=== PATIENT | female | born 1995 | race Hispanic/Latino ===

== ENCOUNTER 2018-04-22 01:29 | Observation (INO) | payer BC, SELFPAY ==
[2018-04-22 02:27] LABS: #Basophils 0.1 thou/uL (0.0-0.2); #Eosinphils 0.1 thou/uL (0.0-0.7); #Lymphocytes 1.6 thou/uL (1.20-3.40); #Monocytes 0.2 thou/uL (0.11-0.59); %Basophils 0.9 % (0.0-1.0); %Eosinophils 0.9 % (0.0-10.0); %Lymphocytes 20.4 % (28.0-48.0); %Monocytes 1.9 % (0.0-4.0); %Neutrophils 75.9 % (31.0-61.0); Hemoglobin 14.3 g/dL (12.0-16.0); Mean Corpuscular HGB CONC 33.4 g/dL (32.0-36.0); Mean Corpuscular Hemoglobin 30.4 pg (25.0-35.0); Mean Corpuscular Volume 90.8 fL (78.0-98.0); Mean Platelet Volume 9.6 fL (7.4-10.4); Platelet Count 266 thou/uL (130-400); RBC Distribution Width 11.4 % (11.5-14.5); Red Blood Cell (RBC) Count 4.72 mill/uL (4.00-5.20)
[2018-04-22 02:37] LABS: BHCG - Serum Negative (NEGATIVE); Pregs Control Background? CLEAR/WHITE (CLR/WHITE); Pregs Control Bar Appear? YES (CONTROL BAR)
[2018-04-22 02:45] LABS: Anion Gap 13 mmol/L (10-20); BUN (Urea Nitrogen) 9 mg/dL (7.0-18.7); Calc. Creatinine Clearance 0 mL/min (70-130); Calcium 9.4 mg/dL (7.8-10.44); Carbon Dioxide 24 mmol/L (22-29); Chloride 106 mmol/L (98-107); Estimated GFR-MDRD Greater than 90; Glucose 158 mg/dL (70-105); Sodium 139 mmol/L (136-145)
[2018-04-22] MEDS ORDERED: Acetaminophen 325 MG TAB PO PRN (04:59)
[2018-04-22] MEDS ORDERED: Ondansetron PF 4 MG/2 ML Vial IVP PRN (04:59)
[2018-04-22] MEDS ORDERED: Ondansetron ODT 4 MG TAB SL PRN (04:59)
[2018-04-22 05:10] VITALS: BMI 37.0
--- NOTE | 2018-04-22 05:38 | PDOC.FPRHP ---
- History of Present Illness Chief Complaint: left sided weakness and numbness; trouble walking History of Present Illness: Patient is a 22 year old female with a past history of complex migraines who initially presented to [facility] for 2 day history fatigue, left upper and extremity weakness/numbness and ataxia. She denies any other neurological symptoms. After evaluation at [facility], pt was transferred due to lack of availability of neurology for consultation. She has a prior history of hospitalization for TIA vs. Complex Migraine at [facility] in 2014. She states that she had residual left sided weakness for several months after that. ED Course: At outside ER, pt received ASA 324 mg, Ativan 1 mg, Solumedrol 1 g. - Allergies/Adverse Reactions Allergies Allergy/AdvReac Type Severity Reaction Status Date / Time No Known Allergies Allergy Verified 04/22/18 05:05 - Home Medications Medication Instructions Recorded Confirmed Type No Known 04/22/18 04/22/18 History - History PMHx:Complex migraine, Anxiety PSHx: none FHx: No family history of neurological disease; maternal grandmother with history of HTN, Father with DM Social: Pt denies drugs, alcohol, and tobacco use. She is a student at [employer]. - Review of Systems General: reports: fatigue. denies: fever/chills, weight/appetite/sleep changes ENT: reports: rhinorrhea. denies: nasal congestion Respiratory: denies: shortness of breath Cardiovascular: denies: chest pain Gastrointestinal: denies: nausea, vomiting, abdominal pain Skin: denies: rashes Musculoskeletal: reports: pain, tenderness Neurological: reports: numbness, weakness. denies: syncope, seizure Psychological: reports: anxiety - Vital signs BP: 131/79 HR: 96 RR: 16 Tmax: 98.9 Pox: 96% on RA Wt: 97 kg - Physical Exam Constitutional: NAD, awake, alert and oriented HEENT: normocephalic and atraumatic, PERRLA, EOMI, grossly normal vision, MMM Neck: supple Heart: RRR, normal S1/S2, no murmurs/rubs/gallops, no edema Lungs: CTAB Abdomen: soft, non-tender Neurological: CN II-XII intact, normal sensation, DTRs 2+ -Neurological: 4/5 strength in left upper and lower extremities. 5/5 in right upper and lower extremities No clonus; negative Babinsnki some spasticity noted in right upper extremity. Skin: no rash/lesions Psychiatric: normal mood and affect FMR H&P: Results - Labs Result Diagrams: 04/22/18 02:18 04/22/18 02:18 Lab results: WBC 8.0 thou/uL (4.8-10.8) 04/22/18 02:18 Hgb 14.3 g/dL (12.0-16.0) 04/22/18 02:18 Hct 42.8 % (36.0-47.0) 04/22/18 02:18 MCV 90.8 fL (78.0-98.0) 04/22/18 02:18 Plt Count 266 thou/uL (130-400) 04/22/18 02:18 Neutrophils % 75.9 % (31.0-61.0) H 04/22/18 02:18 Sodium 139 mmol/L (136-145) 04/22/18 02:18 Potassium 4.0 mmol/L (3.5-5.1) 04/22/18 02:18 Chloride 106 mmol/L (98-107) 04/22/18 02:18 Carbon Dioxide 24 mmol/L (22-29) 04/22/18 02:18 BUN 9 mg/dL (7.0-18.7) 04/22/18 02:18 Creatinine 0.76 mg/dL (0.6-1.1) 04/22/18 02:18 Glucose 158 mg/dL (70-105) H 04/22/18 02:18 Calcium 9.4 mg/dL (7.8-10.44) 04/22/18 02:18 - Radiology Interpretation MRI - head Status: report reviewed by me Additional comment: MRI Brain with and without contrast - multiple foci of increased T2 white matter signal in the periventricular deep white matter bilaterally. There are lesions within the corpus callosum. Findings are compatible with demyelinating process, likely multiple sclerosis. No enhancing lesions are seen at this time. No evidence of acute infarction or acute ischemia. Pansinusitits MRA of the head without contrast shows small 2 mm aneurysn along the anterior communicating artery MRA neck with and without IV contrast -Right and left common carotids - no hemodynamically significant stenosis -Right and left internal carotids no hemodynamically significant stenosis - Right and left vertebral arteries: no hemodynamically significant stenosis. No intimal flaps seen. No luminal narrowing. CT scan - head Status: report reviewed by me (CT) Additional comment: CT head without contrast - no acute intracranial findings -moderate paranasal sinus disease CTA head and neck - small dissection flap in left ICA without luminal narrowing. - otherwise normal CTA of head and neck FMR H&P: A/P - Problem List (1) Multiple sclerosis Current Visit: Yes Status: Acute Code(s): G35 - MULTIPLE SCLEROSIS (2) Anxiety Current Visit: Yes Status: Acute Code(s): F41.9 - ANXIETY DISORDER, UNSPECIFIED (3) Migraine Current Visit: Yes Status: Acute Code(s): G43.909 - MIGRAINE, UNSP, NOT INTRACTABLE, WITHOUT STATUS MIGRAINOSUS - Plan Multiple Sclerosis - will admit patient to medical unit for observation - new diagnosis, acure flare - will continue Methylprednisolone 1 g daily with taper. - likely curbside with neurology in AM. Anxiety - pt is not on chronic meds - will continue to monitor Migraine - per patient, mostly controlled with OTC medications. DVT proph: Lovenox Disposition/LOS: Stable. Length of stay no likely greater than 2 midnights
--- NOTE | 2018-04-22 07:46 | PDOC.FM ---
- Subjective Subjective: 22F, day 1 of hospitalization, her for MS flare. Found at [facility] 2 day prior. Transfered here to see neurology. Apparently no neurologist at [facility]. Patient state she feels well today, her weakness in left leg is improving. Still has some blurry vision. Specifically denies respiratory distress. - Objective MAR Reviewed: Yes Vital Signs & Weight: Vital Signs (12 hours) Temp Pulse Resp BP Pulse Ox 04/22/18 04:55 98.1 F 105 H 16 102/64 96 Weight Weight 94.801 kg Result Diagrams: 04/22/18 02:18 04/22/18 02:18 Phys Exam - Physical Examination Constitutional: NAD HEENT: moist MMs Neck: no nodes, supple Respiratory: no wheezing, no rales, no rhonchi, clear to auscultation bilateral Cardiovascular: RRR, no significant murmur, no rub Gastrointestinal: soft, non-tender, no distention, positive bowel sounds Musculoskeletal: no edema Neurological: non-focal, moves all 4 limbs Lymphatic: no nodes Psychiatric: normal affect Skin: no rash, cap refill <2 seconds Dx/Plan (1) Multiple sclerosis Code(s): G35 - MULTIPLE SCLEROSIS Status: Acute Plan: Currently improving per patient. Plan to continue steroid, convert to oral today. Consult Neuro for recs. No respiratory distress. DC plan include having patient walk and confident in performing daily activities. (2) Anxiety Code(s): F41.9 - ANXIETY DISORDER, UNSPECIFIED Status: Acute Plan: Currently, patient denies anxiety. Advise follow up as outpatient for treatment. (3) Migraine Code(s): G43.909 - MIGRAINE, UNSP, NOT INTRACTABLE, WITHOUT STATUS MIGRAINOSUS Status: Acute Plan: Improved. Patient not having any issue at this moment. Will reevaluate if it occurs.
[2018-04-22] MEDS: Enoxaparin Sodium 40 MG/0.4 ML SYRINGE SC SCH (12:52)
[2018-04-22] MEDS ORDERED: methylPREDNISolone Sod Succ 1 GM in Sodium Chloride 0.9% 250 ML 250 ML IVPB SCH (23:00)
[2018-04-22] MEDS ORDERED: methylPREDNISolone Sod Succ/PF 125 MG/2 ML VIAL IVP SCH (23:00)
--- NOTE | 2018-04-23 07:48 | PDOC.FM ---
- Subjective Subjective: Patient doing well. She reports her strength and blurry vision are all improving. She states she has no complaints. - Objective MAR Reviewed: Yes Vital Signs & Weight: Vital Signs (12 hours) Temp Pulse Resp BP BP Pulse Ox 04/23/18 07:27 97.7 F 72 19 106/67 95 04/23/18 03:45 97.9 F 81 16 115/70 97 04/23/18 00:30 98.5 F 79 16 133/84 84 L 04/22/18 19:50 98.3 F 83 16 126/77 97 Weight Weight 94.801 kg I&O: 04/22/18 04/23/18 04/24/18 06:59 06:59 06:59 Intake Total 250 Balance 250 Result Diagrams: 04/22/18 02:18 04/22/18 02:18 Phys Exam - Physical Examination Constitutional: NAD HEENT: moist MMs Neck: no nodes, supple Respiratory: no wheezing, no rales, no rhonchi, clear to auscultation bilateral Cardiovascular: RRR, no significant murmur, no rub Gastrointestinal: soft, non-tender, no distention, positive bowel sounds Musculoskeletal: no edema Neurological: non-focal, moves all 4 limbs 5/5 strength in upper and LE Lymphatic: no nodes Psychiatric: normal affect, A&O x 3 Skin: no rash Dx/Plan (1) Multiple sclerosis Code(s): G35 - MULTIPLE SCLEROSIS Status: Acute Plan: Currently improving per patient. Plan to continue steroid, convert to oral today. Consult Neuro for recs. Neuro indicated yesterday they will decided today for LP or not No respiratory distress. DC plan include having patient walk and confident in performing daily activities. (2) Anxiety Code(s): F41.9 - ANXIETY DISORDER, UNSPECIFIED Status: Acute Plan: Currently, patient denies anxiety and no overnight event. Advise follow up as outpatient for treatment. (3) Migraine Code(s): G43.909 - MIGRAINE, UNSP, NOT INTRACTABLE, WITHOUT STATUS MIGRAINOSUS Status: Acute Plan: Improved. Patient not having any issue at this moment and has not recurred/. Will reevaluate if it occurs.
[2018-04-23] MEDS: Enoxaparin Sodium 40 MG/0.4 ML SYRINGE SC SCH (10:36)
[2018-04-23] MEDS ORDERED: Acetaminophen 325 MG TAB PO PRN (11:06)
[2018-04-23 11:23] VITALS: BP 106/67
[2018-04-23 11:27] VITALS: TEMP 98.4
--- NOTE | 2018-04-23 12:10 | CON ---
DATE OF CONSULTATION: 04/23/2018 NEUROLOGY CONSULTATION CONSULTING PHYSICIAN: Family [facility]. IMPRESSION: 1. Probable multiple sclerosis. 2. 2 mm right anterior communicating aneurysm. 3. Small left internal carotid dissection. PLAN: 1. IV Solu-Medrol 1 g for 3 days. 2. Medrol Dosepak. 3. Office followup. HISTORY OF PRESENT ILLNESS: Ms. Bills is a 22-year-old female, college student, who came in with complaints of recurrent left-sided weakness. She reports that when she was 20, she had an episode of left-sided weakness that lasted about 2 weeks. She was evaluated in [place] and told that she had had a stroke. She was started on aspirin, but developed nosebleeds and discontinued it. Since then, she has been relatively stable. She has had some problems with panic and anxiety. She has had a tremor in her hands for the last several months. She came in this time with recurrent complaints of left-sided weakness and tendency to drag her left leg. She has also noted some blurred vision in the left eye. There is some minimal ongoing headache. She has a history of migraines also. She has been started on steroids. She was initially worked up at [facility] and had multiple scans done. Due to apparent lack of Neurology cover, they shipped her here. PAST MEDICAL HISTORY: Otherwise, negative other than the event 2 years ago. FAMILY HISTORY: Unremarkable. SOCIAL HISTORY: No tobacco or illicit drug use. MEDICATIONS: None. REVIEW OF SYSTEMS: Ten-system review of systems is otherwise negative. PHYSICAL EXAMINATION: GENERAL: She is a slightly overweight young woman, in no distress. VITAL SIGNS: Stable. She is afebrile. HEENT: Pupils are equal and reactive. Conjunctivae clear. Oropharynx clear. Visual acuity is subjectively mildly decreased in the left eye. There is no color desaturation reported. NECK: Supple. No lymphadenopathy. EXTREMITIES: No cyanosis, clubbing, or edema. NEUROLOGIC: She is alert and appropriate. Her speech is fluent and clear. Cranial nerves 2 through 12 are intact. Otherwise, motor exam showed good strength bilaterally. Sensation was intact to light touch. She had a postural tremor in both hands. She can walk independently. LABORATORY DATA: Laboratory studies were reviewed. SUMMARY: This is a young woman with apparent multiple white matter lesions reported on her MRI suggesting multiple sclerosis. Imaging was not available for review. There is some minor endovascular abnormalities as reported above that probably are insignificant. I would finish her steroid treatment and I will follow up with her to start a disease modifying agent to address her multiple sclerosis. Job ID: [id number]
--- NOTE | 2018-04-24 08:32 | HP ---
ADDENDUM: Please see the history and physical done by Dr. Chhaya Shin, for which I agree as well as the progress note from Dr. Bejarano, for which I agree. The patient was seen, evaluated, and discussed with the residents by bedside. HISTORY OF PRESENT ILLNESS: This is a 22-year-old, who comes in with left-sided weakness, both arm and leg. Does have history of complicated complex migraines in the past, but this seems more extreme for even some problems walking and MRI shows likely multiple foci of increased T2 white matter signal in the periventricular deep white matter bilaterally compatible with demyelinating processes like a mass and so is here for that possibility. She has been given IV Solu-Medrol and her responding seems to be little better as far as her weakness on the left side. PAST MEDICAL HISTORY: Per the history and physical that was reviewed. PAST SURGICAL HISTORY: Per the history and physical that was reviewed. MEDICATIONS: Per the history and physical that was reviewed. ALLERGIES: PER THE HISTORY AND PHYSICAL THAT WAS REVIEWED. REVIEW OF SYSTEMS: Per the history and physical that was reviewed. PHYSICAL EXAMINATION: GENERAL: Exam is completely normal. VITAL SIGNS: Stable. Affect is normal. I do not really appreciate any left facial defects. Left arm and hand seem maybe detail just a little bit weak compared to the right and the left leg also has a slightly weak compared to the right. ASSESSMENT AND PLAN: Multiple sclerosis, likely redness by Dr. Lucas neurology on-call and he recommends IV steroids for about 3 days and then outpatient workup for multiple sclerosis while she is on a Medrol taper. Discussed this with the patient. Job ID: [id number]
--- NOTE | 2018-04-24 08:48 | PRG ---
DATE OF SERVICE: 04/23/2018 ADDENDUM: Please see note from Dr. Timothy Bejarano, for which I agree. The patient was seen, evaluated, examined, and discussed with the residents. Basically doing a lot better. Neurologically starting to get some of her strength back in her left arm, even through it is not 100%, left leg is lot better as well. Has been on IV steroids, and we discussed this with Dr. Lucas, Neurology, yesterday and he wants to see her as an outpatient and feels like since she gets her 3rd day of steroids she can go and will follow up with him. The patient asked us about some kind of CT finding in her neck at [facility], we were able to smith down those old medical records, and a CTA showed a questionable dissection flap that is how is described on the CTA, but then was not seen on MRA on the left side. Certainly, does not describe an actual dissection or anything that extreme. So, it does not sound like this is something that is acutely major problem, but can run this by Neurology as an outpatient to get their opinion, if we just need to keep following this. Job ID: [id number]
--- NOTE | 2018-04-24 14:11 | DIS ---
DATE OF ADMISSION: 04/22/2018 DATE OF DISCHARGE: 04/23/[address] Sebastian Koch DISCHARGE ATTENDING Dr. Sebastian Koch RESIDENT PHYSICIAN Dr. Timothy Bejarano CONSULTS: Dr. Pranay Lucas, Neurology. PROCEDURES: None. PRIMARY DIAGNOSES: 1. Probable multiple sclerosis. 2. A 2-mm right anterior communicating aneurysm. 3. Small left internal carotid dissection. DISCHARGE MEDICATIONS: None. HISTORY OF PRESENT ILLNESS: Ms. Bills is a 22-year-old female who was seen initially at [facility] for recurrent left-sided weakness and blurry vision. She had an MRI done at [facility] where it was found that she has finding concerning for multiple sclerosis. In addition a CT of her carotid was done, finding a 2-mm right anterior communicating aneurysm and small left internal carotid dissection. She was then transferred to [facility] due to apparent lack of Neurology at [facility]. During her stay here, she was started on 1 gm of methylprednisolone Q. daily. During her stay, her symptoms gradually resolved. On the 3rd day of treatment, Dr. Pranay Lucas saw her. His recommendation was that she follow up in clinic with him for further workup on multiple sclerosis and that the small aneurysm and dissection was not of significance but she should also follow up with him for that. DISPOSITION: Stable. DISCHARGE INSTRUCTIONS: Location: To home. Diet: As tolerated. Activity: As tolerated. Followup: Follow up with Dr. Pranay Lucas within 2 weeks. Job ID: [id number] MTDD
== END 2018-04-23 12:21 | disposition home or self-care (01) ==
LOC: ERS 01:29 → T4-A 03:00
PROVIDERS: ADMIT Family Medicine; ATTEND Family Medicine
DX: R53.1 Weakness (principal); G35 Multiple sclerosis; G43.809 Other migraine, not intractable, without status migrainosus; I67.1 Cerebral aneurysm, nonruptured; F41.9 Anxiety disorder, unspecified; Z79.52 Long term (current) use of systemic steroids
CPT/HCPCS: 36415; 80048; 84703; 85025; 96365; 96366; 96372; 99285; G0378; J1650; J2930; J7050

== ENCOUNTER 2020-01-18 09:52 | Inpatient (IN) | payer BC, SELFPAY ==
[2020-01-18 10:31] LABS: #Basophils 0.1 thou/uL (0.0-0.2); #Eosinphils 0.3 thou/uL (0.0-0.7); #Lymphocytes 2.5 thou/uL (1.20-3.40); #Monocytes 0.4 thou/uL (0.11-0.59); %Lymphocytes 26.6 % (21.0-51.0); %Monocytes 4.3 % (0.0-10.0); %Neutrophils 65.2 % (42.0-75.0); Hemoglobin 15.4 g/dL (12.0-16.0); Mean Corpuscular HGB CONC 35.2 g/dL (32.0-36.0); Mean Corpuscular Hemoglobin 32.2 pg (27.0-31.0); Mean Corpuscular Volume 91.5 fL (78.0-98.0); Mean Platelet Volume 9.7 fL (7.4-10.4); Platelet Count 231 thou/uL (130-400); RBC Distribution Width 11.2 % (11.5-14.5); Red Blood Cell (RBC) Count 4.79 mill/uL (4.20-5.40); White Blood Cell (WBC) Count 9.3 thou/uL (4.8-10.8)
[2020-01-18 10:35] LABS: BHCG - Serum Negative (NEGATIVE); Pregs Control Background? CLEAR/WHITE (CLR/WHITE); Pregs Control Bar Appear? YES (CONTROL BAR)
--- NOTE | 2020-01-18 10:48 | CT ---
CT HEAD WITHOUT IV CONTRAST COMPARISON: None HISTORY: Altered mental status. History of multiple sclerosis. Left leg weakness and increased headaches with nausea. TECHNIQUE: Axial CT imaging at 5 mm intervals from vertex through skull base without contrast FINDINGS: There is no evidence of an acute infarction, hemorrhage, mass effect, or midline shift. The ventricul ar system is normal in size, shape, and position. Skull base has a normal CT appearance. Mucosal thickening is seen scattered within the ethmoidal air cells bilaterally with trace mucosal th ickening in the left sphenoid sinus. Mastoid air cells are clear. Osseous structures appear intact. IMPRESSION: 1. No acute intracranial abnormality demonstrated. 2. Patient has reported history of multiple sclerosis. MRI brain would be a more sensitive study of lizette saul for evaluation of demyelinating plaques.
[2020-01-18 10:54] LABS: ALT (SGPT) 14 U/L (8-55); AST (SGOT) 12 U/L (5-34); Albumin 4.2 g/dL (3.5-5.0); Alkaline Phosphatase 80 U/L (40-110); Anion Gap 13 mmol/L (10-20); BUN (Urea Nitrogen) 15 mg/dL (7.0-18.7); Bilirubin, Total 1.2 mg/dL (0.2-1.2); CK (CPK) 99 U/L (29-168); Calc. Creatinine Clearance 0 mL/min (70-130); Calcium 9.1 mg/dL (7.8-10.44); Carbon Dioxide 24 mmol/L (22-29); Chloride 104 mmol/L (98-107); Estimated GFR-MDRD Greater than 90; Globulin 2.7 g/dL (2.4-3.5); Glucose 126 mg/dL (70-105); Potassium 3.9 mmol/L (3.5-5.1); Protein, Total 6.9 g/dL (6.0-8.3); Sodium 137 mmol/L (136-145)
[2020-01-18] MEDS ORDERED: diphenhydrAMINE 50 MG/ML VIAL ONE (11:25)
[2020-01-18] MEDS ORDERED: Acetaminophen 500 MG TAB ONE (11:25)
[2020-01-18] MEDS ORDERED: Metoclopramide HCl 10 MG/2 ML VIAL ONE (11:25)
--- NOTE | 2020-01-18 11:44 | PDOC.FPRHP ---
- History of Present Illness Chief Complaint: dizziness and nausea History of Present Illness: Pt is a 24yo female with hx of MS and migraines who presents with nausea, dizziness and weakness. On Tuesday started to experience a migraine headache, had transient loss of vision in her right eye and had left leg weakness. Left leg has "felt heavy" and she was walking with a limp. Yesterday started to have nausea, emesis, fatigue, and dizziness. Went to [facility] today for dizziness and weakness and was told to go to ED. She was diagnosed with MS in Apr 2018. Had been seeing Dr. Lucas, neurologist, until about 1 year ago when she lost her insurance. She has not been taking medications since then. Denies LOC, slurred speech, fever, cough, congestion, SOB. ED Course: 1L NS, 1000mg methylprednisolone, benadryl 25mg, reglan 10mg, 1g tylenol - Allergies/Adverse Reactions Allergies Allergy/AdvReac Type Severity Reaction Status Date / Time No Known Allergies Allergy Verified 04/22/18 05:05 - Home Medications Medication Instructions Recorded Confirmed Type Aspirin/Acetaminophen/Caffeine 1 each PO Q6HR PRN 01/18/20 01/18/20 History [Excedrin Migraine Caplet] - History PMHx: MS, migraine w/ aura, anxiety PSHx: none FHx: none Social: non-smoker, minimal alcohol use, no drug use - Review of Systems General: denies: fever/chills, weight/appetite/sleep changes Eyes: reports: vision changes ENT: denies: nasal congestion, rhinorrhea Respiratory: denies: cough, congestion, shortness of breath Cardiovascular: reports: palpitation. denies: chest pain Gastrointestinal: reports: nausea, vomiting, diarrhea Genitourinary: denies: dysuria, polyuria Skin: denies: rashes, lesions Musculoskeletal: denies: pain, tenderness Neurological: reports: numbness, weakness Psychological: reports: anxiety. denies: depression - Vital signs BP: 111/60, HR 70, RR 16, Temp 98.2F, O2 100% on RA, wt 100kg - Physical Exam Constitutional: NAD, awake, alert and oriented HEENT: normocephalic and atraumatic, EOMI, no scleral icterus, grossly normal vision, grossly normal hearing, MMM Neck: supple, FROM Heart: RRR, normal S1/S2, no murmurs/rubs/gallops, pulses present, no edema Lungs: CTAB, no respiratory distress, no wheezing Abdomen: soft, non-tender Musculoskeletal: normal structure, normal tone Neurological: CN II-XII intact -Neurological: Left leg: decreased sensation, motor 4/5. RUE intention tremor Skin: no rash/lesions, no jaundice Heme/Lymphatic: no unusual bruising or bleeding Psychiatric: normal mood and affect, good judgment and insight, intact recent and remote memory FMR H&P: Results - Labs Result Diagrams: 01/18/20 10:20 01/18/20 10:20 Lab results: WBC 9.3 thou/uL (4.8-10.8) 01/18/20 10:20 Hgb 15.4 g/dL (12.0-16.0) 01/18/20 10:20 Hct 43.8 % (36.0-47.0) 01/18/20 10:20 MCV 91.5 fL (78.0-98.0) 01/18/20 10:20 Plt Count 231 thou/uL (130-400) 01/18/20 10:20 Neutrophils % 65.2 % (42.0-75.0) 01/18/20 10:20 Sodium 137 mmol/L (136-145) 01/18/20 10:20 Potassium 3.9 mmol/L (3.5-5.1) 01/18/20 10:20 Chloride 104 mmol/L (98-107) 01/18/20 10:20 Carbon Dioxide 24 mmol/L (22-29) 01/18/20 10:20 BUN 15 mg/dL (7.0-18.7) 01/18/20 10:20 Creatinine 0.78 mg/dL (0.6-1.1) 01/18/20 10:20 Glucose 126 mg/dL (70-105) H 01/18/20 10:20 Calcium 9.1 mg/dL (7.8-10.44) 01/18/20 10:20 Total Bilirubin 1.2 mg/dL (0.2-1.2) 01/18/20 10:20 AST 12 U/L (5-34) 01/18/20 10:20 ALT 14 U/L (8-55) 01/18/20 10:20 Alkaline Phosphatase 80 U/L (40-110) 01/18/20 10:20 Creatine Kinase 99 U/L (29-168) 01/18/20 10:20 Serum Total Protein 6.9 g/dL (6.0-8.3) 01/18/20 10:20 Albumin 4.2 g/dL (3.5-5.0) 01/18/20 10:20 - Radiology Interpretation CT scan - head Status: report reviewed by me MRI - head Status: image reviewed by me, report reviewed by me FMR H&P: A/P - Plan 24yo w/ hx of MS presents with NICE, N/V and weakness of L leg #Acute exacerbation of MS -dx of MS, currently not treated due to lack of insurance -Brain CT: no acute process, pending MRI -neurology consulted from ED: start 1000mg methylprednisolone - consulted for help with cost of outpatient treatment for MS #Migraine -received NICE cocktail in ED -takes excedrin migraine at home -tylenol prn, excedrin migraine prn #nausea/vomiting -zofran prn -diet as tolerated -consider IVF if not able to tolerate po #Anxiety -aware, patient not on medication PCP: none Code: Full Diet: Regular IVF: SL DVT ppx: lovenox Dispo: Admit inpatient medical, neurology consulted, appreciate recs. LOS >48hrs FMR H&P: Upper Level - Pertinent history Pt is a 24 yo female with PMH significant for MS, migraines with aura, small left interal carotid dissection, 2 mm anterior communicating aneurysm who presents with neurological deficits. 2 days ago she had a migraine with sudden vision loss but currently does not have vision changes. She has sensory/motor changes to L thigh. She denies any other deficits at this time. She endorse n/v for the last 2 days as well. She was diagnosed in 04/2018 and treated until 12/2018. Has not been on treatment due to lack of insurance. She thinks she was treated with tysabri. Vitals: BP: 111/60, HR 70, RR 16, Temp 98.2F, O2 100% on RA, wt 100kg Pertinent Physical Exam: 4/5 LLE, decreased sensation to L thigh, CN II-XII intact, TAMMY A/P: # Multiple Sclerosis -Neurology consulted in ED -Pt seen previously by Dr. Lucas but pt could not afford medications with lack of insurance CM consulted. -Methylprednisilone 1g IV daily for 3-7 days # N/V -Monitor PO intake and start fluids if Zofran does not alleviate nausea # Hx of 2 mm R anterior communicating aneurysm -No evidence of rupture on CT; Follow up in outpt # Small Left Internal Carotid Dissection -Follow up in outpatient # Hyperglycemia -Monitor with accuchecks in the setting of high dose steroid use # Anxiety -Monitor VTE: Lovenox Diet: Regular change to carb consistent if needed Fluids: PO Code: Full Dispo: Admit to neuro unit for MS Flare, > 48 hrs - Plan Date/Time: 01/18/20 1144 I, Rizwan Nichols, have evaluated this patient and agree with findings/plan as outlined by event marketing intern resident. Pertinent changes/additions are listed here. Addendum - Attending - Attending Attestation Date/Time: 01/18/20 1400 I personally evaluated the patient and discussed the management with Dr. Vasquez/Simone. I agree with the History, Examination, Assessment and Plan documented above with any addition or exceptions noted below. Patient with history of MS here with suggested MS flare. Neuro consult. MRI read pending but does appear to have active inflammatory plaques on my review. High dose steroids. PT. Anticipate several day hospitalization.
[2020-01-18] MEDS ORDERED: methylPREDNISolone Sod Succ 1 GM in Sodium Chloride 0.9% 100 ML IVPB SCH (12:00)
[2020-01-18] MEDS ORDERED: Acetaminophen 325 MG TAB PO PRN (12:53)
[2020-01-18] MEDS ORDERED: Acetaminophen 650 MG Suppository PR PRN (12:53)
[2020-01-18] MEDS ORDERED: Ondansetron ODT 4 MG TAB PO PRN (12:53)
[2020-01-18] MEDS ORDERED: Ondansetron PF 4 MG/2 ML Vial IVP PRN (12:53)
--- NOTE | 2020-01-18 13:17 | CON ---
NEUROLOGY CONSULTATION DATE OF CONSULTATION: 01/18/2020 REASON FOR CONSULTATION: Multiple sclerosis exacerbation. HISTORY OF PRESENT ILLNESS: Ms. Mara Bills is a 24-year-old female with history significant for multiple sclerosis, not on any immune modulating agent due to lack of insurance, came to the hospital from a health clinic at a [facility] because of left leg weakness since the last 2 days. Per the patient, she has difficulty walking and has been limping. She also has decreased sensation up to the knee of the left leg. She also complained of severe migraine with worst pain behind the right eye, for which she has been taking [id number] Excedrin. She also claims to be very nauseous and did have vomiting. The patient has been seen by a neurologist by Dr. Lucas as outpatient, but since she lost her insurance, she has not seen a neurologist for more than a year. Currently, she cannot afford her medications. The patient denies double vision, but she does report pain on moving the eyes and also transient loss of vision in the right eye yesterday, which resolved on its own in the setting of severe headache. The patient reports nausea, vomiting, headache, episode of loss of vision, and pain on moving the eyes, but denies problems with speech or swallowing, urinary retention, or urinary incontinence. REVIEW OF SYSTEMS: All systems were reviewed and were negative except the pertinent positives and negatives mentioned in the HPI. PAST MEDICAL HISTORY: 1. Migraines. 2. Multiple sclerosis. 3. Anxiety. PAST SURGICAL HISTORY: None. SOCIAL HISTORY: Drinks socially twice a month. Denies smoking or illegal drug use. FAMILY HISTORY: No family history of MS. ALLERGIES:NKDA Vital signs BP: 111/60, HR 70, RR 16, Temp 98.2F, O2 100% on RA, wt 100kg PHYSICAL EXAMINATION: Constitutional: NAD, awake, alert and oriented HEENT: normocephalic and atraumatic, EOMI, no scleral icterus, grossly normal vision, grossly normal hearing, MMM Neck: supple, FROM Heart: RRR, normal S1/S2, no murmurs/rubs/gallops, pulses present, no edema Lungs: CTAB, no respiratory distress, no wheezing Abdomen: soft, non-tender Musculoskeletal: normal structure, normal tone Neurological: Mental status; the patient is alert and oriented to person, place, and time. Speech is clear. Recent and remote memory intact. Fund of knowledge is appropriate. Motor; muscle tone and bulk are normal, strength in upper extremity 5/5, intention tremor in the right upper extremity, and left lower extremity 3/5, right lower extremity 5/5. Sensory; decreased sensation to light touch in the left leg up to the knee. Rest is intact. Gait, deferred due to patient's safety reasons. Cerebellar, finger-nose testing intact. DATA REVIEWED: I reviewed the CT scan, which was negative for acute intracranial pathology. Lab results: WBC 9.3 thou/uL (4.8-10.8) 01/18/20 10:20 Hgb 15.4 g/dL (12.0-16.0) 01/18/20 10:20 Hct 43.8 % (36.0-47.0) 01/18/20 10:20 MCV 91.5 fL (78.0-98.0) 01/18/20 10:20 Plt Count 231 thou/uL (130-400) 01/18/20 10:20 Neutrophils % 65.2 % (42.0-75.0) 01/18/20 10:20 Sodium 137 mmol/L (136-145) 01/18/20 10:20 Potassium 3.9 mmol/L (3.5-5.1) 01/18/20 10:20 Chloride 104 mmol/L (98-107) 01/18/20 10:20 Carbon Dioxide 24 mmol/L (22-29) 01/18/20 10:20 BUN 15 mg/dL (7.0-18.7) 01/18/20 10:20 Creatinine 0.78 mg/dL (0.6-1.1) 01/18/20 10:20 Glucose 126 mg/dL (70-105) H 01/18/20 10:20 Calcium 9.1 mg/dL (7.8-10.44) 01/18/20 10:20 Total Bilirubin 1.2 mg/dL (0.2-1.2) 01/18/20 10:20 AST 12 U/L (5-34) 01/18/20 10:20 ALT 14 U/L (8-55) 01/18/20 10:20 Alkaline Phosphatase 80 U/L (40-110) 01/18/20 10:20 Creatine Kinase 99 U/L (29-168) 01/18/20 10:20 Serum Total Protein 6.9 g/dL (6.0-8.3) 01/18/20 10:20 Albumin 4.2 g/dL (3.5-5.0) 01/18/20 10:20 - Radiology Interpretation CT scan - head Status: report reviewed by me ASSESSMENT AND PLAN: Ms. Mara Bills is a 24-year-old female with history significant for MS, not on any long-term immunomodulating agent due to insurance, presented with multiple sclerosis exacerbation. Start on Solu-Medrol 1 g IV every 24 hours for 3-5 days. Regular insulin sliding scale for steroid-induced hyperglycemia. Ppi for steroid-induced gastroesophageal reflux disease. Neuro checks every 4 hours. MRI of the brain with and without contrast to assess for new active demyelinating lesions. PT/OT/Speech. Continue medical management per primary team. The plan discussed in detail with the ED physician and the patient. We will continue to follow. Thank you for the consult. Job ID: [id number] MEDARDO
[2020-01-18 13:40] VITALS: BMI 38.0
--- NOTE | 2020-01-18 14:32 | MRI ---
MRI OF THE BRAIN WITH AND WITHOUT IV CONTRAST: 01/18/20 HISTORY: Altered mental status. Multiple sclerosis. FINDINGS: There are multiple foci of T2 prolongation in the periventricular subcortical white matter consisten t with history of multiple sclerosis. There is an enhancing 6 mm plaque involving the subcortical whi te matter of the left posterior frontal region. No infarct, hemorrhage, mass, midline shift or abnorm al extra-axial fluid collections are seen. The ventricular size is normal and the basilar cisterns pa tent. There is mucosal disease in the paranasal sinuses. IMPRESSION: The findings are consistent with multiple sclerosis with a focal actively demyelinating plaque in the left posterior frontal lobe. POS: AH
[2020-01-18] MEDS ORDERED: Magnevist 469MG/ML 20 ML VIAL ONE (15:15)
[2020-01-18] MEDS ORDERED: Dextrose 5% in Water 1,000 ML IV PRN (20:15)
[2020-01-18] MEDS ORDERED: Dextrose 50% Abboject 50 ML SYRINGE IVP PRN (20:15)
[2020-01-18] MEDS: HumaLOG 300 UNITS/3 ML VIAL SC PRN (20:27)
[2020-01-18] MEDS: Aspirin/APAP/Caffeine Tab (Excedrin Migraine) PO PRN (20:31)
[2020-01-19] MEDS ORDERED: Ketorolac Tromethamine 30 MG/ML VIAL IVP SCH ×2 (03:00→13:30)
--- NOTE | 2020-01-19 06:14 | PDOC.FM ---
- Subjective Subjective: Headache overnight, given toradol which resolved. She has no other complaints this morning. She has not had any further vision changes, normal vision at this time. She feels weakness has improved, no focal symptoms. She has intention tremor of R hand which is chronic and has not worsened per patient. - Objective Vital Signs & Weight: Vital Signs (12 hours) Temp Pulse Resp BP BP Pulse Ox 01/19/20 04:00 98.1 F 71 20 124/75 97 01/18/20 23:40 98.4 F 98 18 128/79 98 01/18/20 20:00 98 01/18/20 19:50 99.3 F 110 H 20 122/79 94 L Weight Weight 100.698 kg I&O: 01/17/20 01/18/20 01/19/20 06:59 06:59 06:59 Intake Total 340 Balance 340 Result Diagrams: 01/18/20 10:20 01/18/20 10:20 Phys Exam - Physical Examination Constitutional: NAD HEENT: moist MMs Neck: supple Respiratory: no wheezing, no rales, no rhonchi, clear to auscultation bilateral Cardiovascular: RRR, no significant murmur Gastrointestinal: soft, non-tender, no distention, positive bowel sounds Musculoskeletal: no edema Neurological: non-focal, moves all 4 limbs R hand intention tremor Psychiatric: normal affect, A&O x 3 Skin: no rash Dx/Plan - Plan Plan: 24yo w/ hx of MS presents with NICE, N/V and weakness of L leg #Acute exacerbation of MS -dx of MS, currently not treated due to lack of insurance -Brain CT: no acute process, MRI c/w MS and actively demylinating plaque in L posterior frontal lobe -neurology consulted from ED - continue methylpredisolone 1 g daily - started 01/17 - consulted for help with cost of outpatient treatment for MS #Migraine -received NICE cocktail in ED -takes excedrin migraine at home -tylenol prn, excedrin migraine prn - toradol overnight resolved headache #Hyperglycemia Likely 2/2 high dose steroids - continue accuchecks - consider hga1c if persistent #nausea/vomiting -zofran prn -diet as tolerated -consider IVF if not able to tolerate po #Anxiety -aware, patient not on medication PCP: none Code: Full Diet: Regular IVF: SL DVT ppx: lovenox Dispo: Admit inpatient medical, neurology consulted, appreciate recs. LOS >48hrs Addendum - Attending - Attending Attestation Date/Time: 01/19/20 1475 I personally evaluated the patient and discussed the management with Dr. Ascencio. I agree with the History, Examination, Assessment and Plan documented above with any addition or exceptions noted below. Patient reports feeling overall improved, but did have headache overnight. Continue IV solumedrol, therapy. Anticipate 2-3 days of hospitalization ahead. Neurology on board. CM for medication assistance.
[2020-01-19] MEDS: methylPREDNISolone Sod Succ 1 GM in Sodium Chloride 0.9% 100 ML IVPB SCH (08:50)
[2020-01-19] MEDS: Enoxaparin Sodium 40 MG/0.4 ML SYRINGE SC SCH (08:50)
[2020-01-19] MEDS ORDERED: methylPREDNISolone Sod Succ/PF 125 MG/2 ML VIAL IVP SCH (09:00)
[2020-01-19] MEDS: HumaLOG 300 UNITS/3 ML VIAL SC PRN ×3 (12:52→20:05)
[2020-01-19] MEDS: Aspirin/APAP/Caffeine Tab (Excedrin Migraine) PO PRN (13:40)
[2020-01-19] MEDS ORDERED: FLU VACC QS2020-21(6MOS UP)/PF 60 MCG/0.5 ML SYRINGE IM ONE (14:00)
--- NOTE | 2020-01-19 14:14 | PDOC.NEUPN ---
- Subjective Encounter Date: 01/19/20 Subjective: Patient feels much better today. She was able to walk with the help of the physical therapist - Objective Vital Signs & Weight: Vital Signs (12 hours) Temp Pulse Resp BP BP BP Pulse Ox 01/19/20 12:00 98.0 F 80 20 133/78 96 01/19/20 09:25 112/76 01/19/20 08:00 98 01/19/20 07:46 98.2 F 62 20 104/67 98 01/19/20 04:00 98.1 F 71 20 124/75 97 Weight Admit Weight 222 lb Weight 222 lb I&O: 01/18/20 01/19/20 01/20/20 06:59 06:59 05:59 Intake Total 340 Balance 340 Result Diagrams: 01/18/20 10:20 01/18/20 10:20 Additional Labs: Accuchecks 01/19/20 01/19/20 01/18/20 11:56 04:23 19:40 POC Glucose 219 H 146 H 237 H Radiology Reviewed by me: Yes EKG Reviewed by me: Yes ROS - Review of Systems Constitutional: denies: fever, chills, sweats, weakness, malaise, other Eyes: reports: pain ENT: denies: ear pain, ear discharge, nose pain, nose discharge, nose congestion, mouth pain, mouth swelling, throat pain, throat swelling, other Respiratory: denies: cough, dry, shortness of breath, hemoptysis, SOB with excertion, pleuritic pain, sputum, wheezing, other Cardiovascular: denies: no pertinent history, AFIB, CAD, CHF, HTN, AK, Syncope, Hyperlipidemia, Mitral valve stenosis, Aortic stenosis, Valve insufficiency, Pulmonary hypertension, Other Gastrointestinal: denies: nausea, vomiting, abdominal pain, diarrhea, constipation, melena, hematochezia, other Genitourinary: denies: dysuria, frequency, incontinence, hematuria, retention, other Musculoskeletal: reports: leg pain, foot pain. denies: neck pain, shoulder pain, arm pain, back pain, hand pain, other Skin: denies: rash, lesions, alessandro, bruising, other Neurological: reports: weakness. denies: numbness, incoordination, change in speech, confusion, seizures, other All Systems: All other systems reviewed; all pertinent +/- noted in HPI/Subj - Medication Medications: Active Medications Generic Name Dose Route Start Last Admin Trade Name Freq PRN Reason Stop Dose Admin Acetaminophen/Aspirin/Caffeine 1 tab 01/18/20 13:31 01/19/20 13:40 Aspirin/Apap/Caffeine Tab (Excedrin Migraine) PO 1 tab Q6H PRN Administration Headache Enoxaparin Sodium 40 mg 01/19/20 09:00 01/19/20 08:50 Enoxaparin Sodium 40 Mg/0.4 Ml Syringe SC 40 mg 0900 GWEN Administration Methylprednisolone Sodium 116 mls @ 116 mls/hr 01/19/20 09:00 01/19/20 08:50 Succinate 1 gm/ Sodium IVPB 116 mls Chloride DAILY GWEN Administration Insulin Human Lispro 0 units 01/18/20 20:04 01/19/20 12:52 Humalog 300 Units/3 Ml Vial SC 3 unit .MILD SLIDING SCALE PRN Administration Mild Correctional Scale Insulin Human Lispro 0 units 01/18/20 20:04 01/18/20 20:27 Humalog 300 Units/3 Ml Vial SC 2 unit .BEDTIME SLIDING SC PRN Administration Bedtime Correctional Scale Ketorolac Tromethamine 15 mg 01/19/20 13:30 01/19/20 13:41 Ketorolac Tromethamine 30 Mg/Ml Vial IVP 01/19/20 15:30 15 mg NOW GWEN Administration Pantoprazole Sodium 40 mg 01/19/20 09:00 01/19/20 08:50 Pantoprazole 40 Mg Tab PO 40 mg DAILY GWEN Administration Results - Labs Result Diagrams: 01/18/20 10:20 01/18/20 10:20 Lab results: WBC 9.3 thou/uL (4.8-10.8) 01/18/20 10:20 Hgb 15.4 g/dL (12.0-16.0) 01/18/20 10:20 Hct 43.8 % (36.0-47.0) 01/18/20 10:20 MCV 91.5 fL (78.0-98.0) 01/18/20 10:20 Plt Count 231 thou/uL (130-400) 01/18/20 10:20 Neutrophils % 65.2 % (42.0-75.0) 01/18/20 10:20 Sodium 137 mmol/L (136-145) 01/18/20 10:20 Potassium 3.9 mmol/L (3.5-5.1) 01/18/20 10:20 Chloride 104 mmol/L (98-107) 01/18/20 10:20 Carbon Dioxide 24 mmol/L (22-29) 01/18/20 10:20 BUN 15 mg/dL (7.0-18.7) 01/18/20 10:20 Creatinine 0.78 mg/dL (0.6-1.1) 01/18/20 10:20 Glucose 126 mg/dL (70-105) H 01/18/20 10:20 Calcium 9.1 mg/dL (7.8-10.44) 01/18/20 10:20 Total Bilirubin 1.2 mg/dL (0.2-1.2) 01/18/20 10:20 AST 12 U/L (5-34) 01/18/20 10:20 ALT 14 U/L (8-55) 01/18/20 10:20 Alkaline Phosphatase 80 U/L (40-110) 01/18/20 10:20 Creatine Kinase 99 U/L (29-168) 01/18/20 10:20 Serum Total Protein 6.9 g/dL (6.0-8.3) 01/18/20 10:20 Albumin 4.2 g/dL (3.5-5.0) 01/18/20 10:20 - Radiology Interpretation MRI - head Status: image reviewed by me, report reviewed by me Additional Comment: MRI of the brain did not reveal acute intracranial pathology. Active demyelinating lesions seen on MRI brain consistent with MS exacerbation PN A/P - Plan Daily Plan: PT/OT, speech therapy, out of bed/ambulate 24-year-old female with history significant for multiple sclerosis presented with MS exacerbation characterized by weakness in the lower extremity and painful paresthesias in the left lower extremity. MRI of the brain reviewed which was consistent with active demyelinating lesions consistent with multiple sclerosis exacerbation Continue Solu-Medrol 1 g IV for 3 days. Today is day #2. Neurochecks every 4 hours. Regular insulin sliding scale for steroid-induced hyperglycemia. PPI for steroid-induced gastroesophageal reflux disease. Continue home medications. Consider case management consult regarding insurance issues in obtaining long- term treatment for multiple sclerosis. PT/OT Continue medical management per primary team. Plan discussed in detail with the patient and the nursing staff.
[2020-01-19] MEDS ORDERED: Ketorolac Tromethamine 10 MG TAB PO SCH (19:00)
[2020-01-20] MEDS: HumaLOG 300 UNITS/3 ML VIAL SC PRN (06:21)
--- NOTE | 2020-01-20 06:35 | PDOC.FM ---
- Subjective Subjective: Overnight, again developed a headache and was given toradol which relieved her symptoms. She feels as though hyperglycemia is triggering her migraines. On initial examination today, she denied any additional complaints including CP, SOB, abdominal pain, edema. A short time later we were called back for an episode of chest pain and bradycardia to the 50s. EKG was obtained revealing sinus bradycardia and resolved on its own. Pt states she thought she was having some anxiety when her vitals were checked and she was noted to be bradycardic. She describes the pain as sharp, stabbing central pain that does not radiate. S he denies any abdominal pain, sour taste in the mouth. Her headache is also improving at this time and she feels she would like to go home. - Objective Vital Signs & Weight: Vital Signs (12 hours) Pulse Ox 01/19/20 20:00 96 Weight Admit Weight 100.698 kg Weight 100.698 kg I&O: 01/18/20 01/19/20 01/20/20 06:59 06:59 05:59 Intake Total 340 1451 Balance 340 1451 Result Diagrams: 01/18/20 10:01/18/20 10:20 EKG Reviewed by me: Yes (sinus bradycardia) Phys Exam - Physical Examination Constitutional: NAD HEENT: moist MMs, sclera anicteric Neck: supple Respiratory: no wheezing, no rales, no rhonchi, clear to auscultation bilateral Cardiovascular: RRR, no significant murmur Gastrointestinal: soft, non-tender, no distention, positive bowel sounds Musculoskeletal: no edema Neurological: non-focal, moves all 4 limbs Psychiatric: normal affect, A&O x 3 Skin: no rash Dx/Plan - Plan Plan: 24yo w/ hx of MS presents with NICE, N/V and weakness of L leg #Acute exacerbation of MS -dx of MS, currently not treated due to lack of insurance -Brain CT: no acute process, MRI c/w MS and actively demylinating plaque in L posterior frontal lobe -neurology consulted from ED, appreciate recs - methylprednisolone given x 3 doses, will discontinue after 3rd dose today - will need outpatient neurology f/u, CM consulted #Migraine -received NICE cocktail in ED -takes excedrin migraine at home -tylenol prn, excedrin migraine prn - toradol overnight resolved headache - will discontinue further use of toradol due to suspected reflux/possible gastritis #Hyperglycemia Likely 2/2 high dose steroids - f/u Hg1c to r/o pre-diabetes - will monitor accuchecks this afternoon, possible DC home if not elevating further #nausea/vomiting -zofran prn -diet as tolerated -consider IVF if not able to tolerate po #Anxiety -aware, patient not on medication PCP: none Code: Full Diet: Regular IVF: SL DVT ppx: lovenox Dispo: Admit inpatient medical, neurology consulted, appreciate recs. Likely DC to home later today or tomorrow pending BS/headache. Addendum - Attending - Attending Attestation Date/Time: 01/20/20 1031 I personally evaluated the patient and discussed the management with Dr. Ascencio. I agree with the History, Examination, Assessment and Plan documented above with any addition or exceptions noted below. Patient feels well except for when her blood sugar is increased, then has headaches. She feels her neuro status is improving. Continue PT, last dose of Solumedrol today. Possible dc today or tomorrow. Needs CM assistance for medication assistance programs.
[2020-01-20] MEDS: methylPREDNISolone Sod Succ 1 GM in Sodium Chloride 0.9% 100 ML IVPB SCH (09:55)
[2020-01-20] MEDS: Enoxaparin Sodium 40 MG/0.4 ML SYRINGE SC SCH (09:55)
[2020-01-20 11:23] VITALS: TEMP 98.5
[2020-01-20] MEDS ORDERED: Aspirin/APAP/Caffeine Tab (Excedrin Migraine) PO PRN (11:24)
[2020-01-20] MEDS ORDERED: Famotidine 20 MG TAB PO SCH ×2 (11:30→21:00)
--- NOTE | 2020-01-20 12:26 | PDOC.NEUPN ---
- Subjective Encounter Date: 01/20/20 Subjective: Patient seems better today and denies any new complaints in the last 24 hours. She is receiving her last dose of steroids today. - Objective Vital Signs & Weight: Vital Signs (12 hours) Temp Pulse Resp BP Pulse Ox 01/20/20 11:00 98.5 F 57 L 20 110/73 96 01/20/20 07:51 97.9 F 51 L 18 124/85 100 Weight Admit Weight 222 lb Weight 222 lb I&O: 01/19/20 01/20/20 01/21/20 07:59 06:59 06:59 Intake Total Balance Result Diagrams: 01/18/20 10:20 01/18/20 10:20 Additional Labs: Accuchecks 01/20/20 01/20/20 01/19/20 11:18 04:31 19:28 POC Glucose 119 H 189 H 229 H 01/19/20 16:16 POC Glucose 202 H Radiology Reviewed by me: Yes EKG Reviewed by me: Yes ROS - Review of Systems Constitutional: denies: fever, chills, sweats, weakness, malaise, other Eyes: reports: pain. denies: vision change, conjunctivae inflammation, eyelid inflammation, redness, other Respiratory: denies: cough, dry, shortness of breath, hemoptysis, SOB with excertion, pleuritic pain, sputum, wheezing, other Cardiovascular: denies: no pertinent history, AFIB, CAD, CHF, HTN, [place], Syncope, Hyperlipidemia, Mitral valve stenosis, Aortic stenosis, Valve insufficiency, Pulmonary hypertension, Other Gastrointestinal: denies: nausea, vomiting, abdominal pain, diarrhea, constipation, melena, hematochezia, other Genitourinary: denies: dysuria, frequency, incontinence, hematuria, retention, other Musculoskeletal: denies: neck pain, shoulder pain, arm pain, back pain, hand pain, leg pain, foot pain, other Skin: denies: rash, lesions, alessandro, bruising, other Neurological: reports: weakness, numbness. denies: incoordination, change in speech, confusion, seizures, other All Systems: All other systems reviewed; all pertinent +/- noted in HPI/Subj - Medication Medications: Active Medications Generic Name Dose Route Start Last Admin Trade Name Freq PRN Reason Stop Dose Admin Acetaminophen/Aspirin/Caffeine 1 tab 01/20/20 11:24 01/20/20 11:34 Aspirin/Apap/Caffeine Tab (Excedrin Migraine) PO 1 tab Q6H PRN Administration Headache Enoxaparin Sodium 40 mg 01/19/20 09:00 01/20/20 09:55 Enoxaparin Sodium 40 Mg/0.4 Ml Syringe SC 40 mg 0900 GWEN Administration Famotidine 20 mg 01/20/20 11:30 01/20/20 11:34 Famotidine 20 Mg Tab PO 01/20/20 13:30 20 mg NOW GWEN Administration Methylprednisolone Sodium 116 mls @ 116 mls/hr 01/19/20 09:00 01/20/20 09:55 Succinate 1 gm/ Sodium IVPB 116 mls Chloride DAILY GWEN Administration Insulin Human Lispro 0 units 01/18/20 20:04 01/20/20 06:21 Humalog 300 Units/3 Ml Vial SC 2 unit .MILD SLIDING SCALE PRN Administration Mild Correctional Scale Insulin Human Lispro 0 units 01/18/20 20:04 01/19/20 20:05 Humalog 300 Units/3 Ml Vial SC 2 unit .BEDTIME SLIDING SC PRN Administration Bedtime Correctional Scale Pantoprazole Sodium 40 mg 01/19/20 09:00 01/20/20 09:55 Pantoprazole 40 Mg Tab PO 40 mg DAILY GWEN Administration - Exam General Appearance: awake alert Eye: PERRL ENT: normocephalic atraumatic Neck: supple Respiratory: CTAB Cardiovascular: RRR Gastrointestinal: soft Extremities: no cyanosis Skin: normal turgor Neurological: CN's grossly intact, no new deficit Musculoskeletal: no muscle wasting PSYCH: normal affect, normal behavior, A&O x 3, oriented to person, oriented to place, oriented to time Results - Labs Result Diagrams: 01/18/20 10:20 01/18/20 10:20 Lab results: WBC 9.3 thou/uL (4.8-10.8) 01/18/20 10:20 Hgb 15.4 g/dL (12.0-16.0) 01/18/20 10:20 Hct 43.8 % (36.0-47.0) 01/18/20 10:20 MCV 91.5 fL (78.0-98.0) 01/18/20 10:20 Plt Count 231 thou/uL (130-400) 01/18/20 10:20 Neutrophils % 65.2 % (42.0-75.0) 01/18/20 10:20 Sodium 137 mmol/L (136-145) 01/18/20 10:20 Potassium 3.9 mmol/L (3.5-5.1) 01/18/20 10:20 Chloride 104 mmol/L (98-107) 01/18/20 10:20 Carbon Dioxide 24 mmol/L (22-29) 01/18/20 10:20 BUN 15 mg/dL (7.0-18.7) 01/18/20 10:20 Creatinine 0.78 mg/dL (0.6-1.1) 01/18/20 10:20 Glucose 126 mg/dL (70-105) H 01/18/20 10:20 Calcium 9.1 mg/dL (7.8-10.44) 01/18/20 10:20 Total Bilirubin 1.2 mg/dL (0.2-1.2) 01/18/20 10:20 AST 12 U/L (5-34) 01/18/20 10:20 ALT 14 U/L (8-55) 01/18/20 10:20 Alkaline Phosphatase 80 U/L (40-110) 01/18/20 10:20 Creatine Kinase 99 U/L (29-168) 01/18/20 10:20 Serum Total Protein 6.9 g/dL (6.0-8.3) 01/18/20 10:20 Albumin 4.2 g/dL (3.5-5.0) 01/18/20 10:20 - EKG Interpretation EKG: Normal sinus rhythm - Radiology Interpretation MRI - head Status: image reviewed by me, report reviewed by me Additional Comment: MRI of the brain showed active delighted myelinating lesions consistent with multiple sclerosis exacerbation PN A/P - Plan Daily Plan: PT/OT, out of bed/ambulate 24-year-old female with history significant for multiple sclerosis presented with MS exacerbation characterized by weakness in the lower extremity and painful paresthesias in the left lower extremity which are now improved. MRI of the brain reviewed which was consistent with active demyelinating lesions consistent with multiple sclerosis exacerbation Continue Solu-Medrol 1 g IV for 3 days. Today is day #3. Neurochecks every 4 hours. Regular insulin sliding scale for steroid-induced hyperglycemia. PPI for steroid-induced gastroesophageal reflux disease. Continue home medications. Consider case management consult regarding insurance issues in obtaining long- term treatment for multiple sclerosis. PT/OT Continue medical management per primary team. Patient stable from neurology perspective. She is advised to follow-up with Dr. Garay as outpatient for management of multiple sclerosis. Plan discussed in detail with the patient and the nursing staff.
[2020-01-20 16:03] VITALS: BP 123/74
--- NOTE | 2020-01-22 11:56 | DIS ---
DATE OF ADMISSION: 01/18/2020 DATE OF DISCHARGE: 01/20/2020 RESIDENT: Niharika Ascencio DO ADMITTING ATTENDING: Dr. Dale Kincaid. DISCHARGE ATTENDING: Dr. Dale Kincaid. CONSULTS: Neurology, Dr. Fuentes. PROCEDURES: CT of the brain, MRI of the brain. PRIMARY DIAGNOSIS: Multiple sclerosis exacerbation. SECONDARY DIAGNOSES: Migraines, anxiety, small left internal carotid dissection. DISCHARGE MEDICATIONS: Excedrin Migraine one tab q.6 hours p.r.n. DISCONTINUED MEDICATIONS: None. HISTORY OF PRESENT ILLNESS/HOSPITAL COURSE: This is a 24-year-old female with a past medical history of multiple sclerosis and migraines who presented with nausea, dizziness, and weakness, as well as transient loss of vision in the right eye and left leg weakness. She was diagnosed with MS in April of 2018. At that point, she was seeing Dr. Lucas, Neurology until one year ago when she lost her insurance. She has not been taking any medications for MS since that time. She denies any additional symptoms. A CT of the brain was performed which revealed no acute processes. Subsequently an MRI of the brain was performed which revealed multiple sclerosis with a focal actively demyelinating plaque in the left posterior frontal lobe. She was started on high dose of steroids and Neurology was consulted. She was also started on sliding scale insulin for steroid-induced hyperglycemia and a PPI for steroid-induced reflux disease. PT, OT, and Speech were consulted. The patient did experience headaches while she was present in the hospital. She was treated for these presumed migraine headaches with Excedrin, Tylenol and Toradol as well as Zofran for associated nausea. After she completed three days of high-dose steroids, her symptoms were improved. She was discharged to home in stable condition. The patient reports that she does not have insurance. Case Management was consulted to help with acquiring resources and she was given information for how to follow up with a primary care physician such as [facility] or [facility] as well as information about financial assistance. It was recommended that she follow up with Neurology, Dr. Lucas within one week of discharge. DISPOSITION: Stable. DISCHARGE INSTRUCTIONS: 1. Location: Home. 2. Diet: Regular diet. 3. Activity: As tolerated. 4. Follow up with NeurologyDr. Lucas and patient needs to establish care with a primary care physician. Information given for [facility], [facility] and [facility]. Job ID: [id number]
--- NOTE | 2020-01-23 19:32 | EKG ---
Test Reason : Blood Pressure : / mmHG Vent. Rate : 046 BPM Atrial Rate : 046 BPM P-R Int : 132 ms QRS Dur : 088 ms QT Int : 464 ms P-R-T Axes : 007 030 010 degrees QTc Int : 406 ms Sinus bradycardia Nonspecific ST abnormality Abnormal ECG No previous ECGs available Confirmed by HUDSON FLORES, DR. Gonzales ([id number]) on 01/23/2020 7:31:48 PM Referred By: [facility] Confirmed By:DR. Janet TREVIÑO MD
== END 2020-01-20 18:15 | disposition home or self-care (01) | DRG 60 ==
LOC: ERS 09:52 → T4-B 13:36
PROVIDERS: ADMIT Student in an Organized Health Care Education/Training Program; ATTEND Student in an Organized Health Care Education/Training Program
DX: G35 Multiple sclerosis (principal); G43.909 Migraine, unspecified, not intractable, without status migrainosus; F41.9 Anxiety disorder, unspecified; R73.9 Hyperglycemia, unspecified; T38.0X5A Adverse effect of glucocorticoids and synthetic analogues, initial encounter; Z88.8 Allergy status to other drugs, medicaments and biological substances; Z23 Encounter for immunization
CPT/HCPCS: 36415; 36416; 70450; 70553; 80053; 82550; 83036; 84703; 85025; 90471; 90662; 93005; 93010; 96365; 96375; A9579; G0008; J1200; J1650; J1885; J2765; J2930; J3490